=== PATIENT | female | born 2000 | race Caucasian/White ===

== ENCOUNTER 2018-08-31 23:15 | Emergency (ER) | payer BC ==
[2018-08-31] MEDS ORDERED: PHENAZOPYRIDINE HCL 200 MG TAB PO ONE (23:38)
[2018-08-31] MEDS ORDERED: NITROFURANTOIN 100MG PREPACK#2 BTL TAKEHOME ONE (23:38)
--- NOTE | 2018-08-31 23:38 | EDPHY ---
H & P Stated Complaint: PAIN WITH URINATION TONIGH Time Seen by Provider: 08/31/18 23:27 HPI/ROS: Chief Complaint: Possible UTI HPI: 18-year-old sexually active woman presenting with 1 day of increased urinary urgency frequency and dysuria. Mild lower abdominal discomfort with some mild back pain. No flank pain. Does have a history of UTIs in the past. Last menstrual cycle was 2 months ago. She is on control which makes her cycle irregular. No vaginal discharge. No nausea or vomiting. No fevers or chills. ROS: 10 systems were reviewed and were negative except those elements noted in the HPI. PMH: Denies Social History: No smoking, no alcohol, no recreational drug use Family History: non-contributory Physical Exam: Gen: Awake, Alert, No Distress HEENT: Nose: no rhinorrhea Eyes: PERRLA, EOMI Mouth: Moist mucosa Neck: Supple, no JVD Chest: nontender, lungs clear to auscultation Heart: S1, S2 normal, no murmur Abd: Soft, non-tender, no guarding Back: no CVA tenderness, no midline tenderness Ext: no edema, non-tender Skin: no rash Neuro: CN II-XII intact, Sensation grossly intact, Strength 5/5 in bilateral upper and lower extremities - Personal History LMP (Females 10-55): 1-7 Days Ago Current Tetanus/Diphtheria Vaccine: Yes Current Tetanus Diphtheria and Acellular Pertussis (TDAP): Yes - Medical/Surgical History Hx Asthma: No Hx Chronic Respiratory Disease: No Hx Diabetes: No Hx Cardiac Disease: No Hx Renal Disease: No Hx Cirrhosis: No Hx Alcoholism: No Hx HIV/AIDS: No Hx Splenectomy or Spleen Trauma: No Other PMH: UTI, KIDNEY STONES - Social History Smoking Status: Never smoked Constitutional: Initial Vital Signs Temperature (C) 37.0 C 08/31/18 23:16 Heart Rate 94 08/31/18 23:16 Respiratory Rate 18 08/31/18 23:16 Blood Pressure 136/84 H 08/31/18 23:16 O2 Sat (%) 96 08/31/18 23:16 O2 Delivery Mode Room Air Allergies/Adverse Reactions: No Known Allergies Allergy (Unverified 08/31/18 23:18) Home Medications: Medication Instructions Recorded Nitrofurantoin Monohyd/M-Cryst 100 mg PO BID #8 capsule 08/31/18 [Macrobid 100 mg Capsule] Norethindrone-E.estradiol-Iron 1 each PO 08/31/18 [Junel Fe 24 Tablet] Phenazopyridine HCl [Pyridium] 200 mg PO TID #6 tab 08/31/18 Medical Decision Making ED Course/Re-evaluation: Healthy 18-year-old woman with classic UTI symptoms. Will treat with antibiotics and peridium, follow up with [facility]. - Data Points Laboratory Results: 08/31/18 08/31/18 23:18 23:18 Urine Color Pending Urine Appearance Pending Urine pH Pending Ur Specific [place] Pending Urine Protein Pending Urine Ketones Pending Urine Blood Pending Urine Nitrate Pending Urine Bilirubin Pending Urine Urobilinogen Pending Ur Leukocyte Esterase Pending Urine Glucose Pending Urine Test Cancelled Departure - Departure Disposition: Home, Routine, Self-Care Clinical Impression: Urinary tract infection Condition: Good Instructions: Urinary Tract Infection in Women (ED), Nitrofurantoin (By mouth) , Phenazopyridine (By mouth) Additional Instructions: Please take your full course of antibiotics. Follow up at [facility] in 3-4 days if symptoms are not improving. Referrals: [facility] [Clinic] - As per Instructions Prescriptions: Nitrofurantoin Monohyd/M-Cryst [Macrobid 100 mg Capsule] 100 mg PO BID #8 capsule Phenazopyridine HCl [Pyridium] 200 mg PO TID #6 tab
[2018-09-01 00:01] VITALS: BP 124/73
== END 2018-09-01 00:09 | disposition home or self-care (01) ==
DX: N39.0 Urinary tract infection, site not specified (principal); Z87.440 Personal history of urinary (tract) infections